=== PATIENT | male | born 1985 | race Caucasian/White ===

== ENCOUNTER 2025-05-30 17:38 | Emergency (ER) | payer SELFPAY | END 2025-05-30 20:01 | disposition home or self-care (01) | LOC: JP.ED 17:38 | DX: S93.602A Unspecified sprain of left foot, initial encounter (principal); Z79.899 Other long term (current) drug therapy; W14.XXXA Fall from tree, initial encounter; X50.1XXA Overexertion from prolonged static or awkward postures, initial encounter | CPT/HCPCS: 73590-26-LT; 73590-LT; 73630-26-LT; 73630-LT; 99283 ==